=== PATIENT | male | born 1965 | race Caucasian/White ===

== ENCOUNTER 2017-11-07 09:06 | Day surgery (SDC) | payer OTHER ==
[2017-11-07] MEDS ORDERED: Lactated Ringer's 500 ML IV ONE (09:46)
[2017-11-07] MEDS ORDERED: Midazolam 2 MG/2 ML VIAL ONE (10:24)
[2017-11-07] MEDS ORDERED: Propofol 10 mg/ml Inj (20 ML) ONE (10:24)
[2017-11-07 10:56] VITALS: TEMP 97.3
[2017-11-07 11:04] VITALS: BP 110/71; PULSE 88; RESP 18; O2SAT 98
== END 2017-11-07 11:34 | disposition home or self-care (01) ==
LOC: H.ENDO 09:06
PROVIDERS: ATTEND Internal Medicine Gastroenterology
DX: R10.32 Left lower quadrant pain (principal); K64.8 Other hemorrhoids
CPT/HCPCS: 45378; J2001; J2250; J2704; J7120